=== PATIENT | male | born 1980 | race Caucasian/White ===

== ENCOUNTER 2023-07-01 14:07 | Emergency (ER) | payer MEDICAID ==
[~2023-07-01] VITALS: Ht 167.6 cm; Wt 79.5 kg
[2023-07-01] MEDS ORDERED: ACETAMINOPHEN 1000 MG/ISO-OSM 100 ML IV ONE (14:30)
[2023-07-01] MEDS ORDERED: SODIUM CHLORIDE 0.9% 2,400 ML IV ONE (14:30)
[2023-07-01] MEDS ORDERED: 0.9% SODIUM CHLORIDE 10 ML SYRINGE IVP PRN (14:30)
[2023-07-01] MEDS ORDERED: ONDANSETRON HCL 4 MG/2 ML VIAL IVP ONE (14:30)
[2023-07-01] MEDS ORDERED: KETOROLAC TROMETHAMINE 30 MG/ML VIAL IVP ONE (14:30)
[2023-07-01 15:06] LABS: BASOPHILS % (AUTO) 0.1 % (0.0-2.0); EOSINOPHILS % (AUTO) 0.1 % (1.0-6.0); HEMATOCRIT 41.4 % (41-53); HEMOGLOBIN 14.1 g/dL (13.5-17.5); LYMPHOCYTES # (AUTO) 0.6 K/uL (1.0-4.8); LYMPHOCYTES % (AUTO) 8.1 % (22.0-44.0); MEAN CORPUSCULAR HEMOGLOBIN 31.3 pg (26.0-34.0); MEAN CORPUSCULAR HGB CONC 34.1 G/dL (31.0-37.0); MEAN CORPUSCULAR VOLUME 92 fL (80-100); MONOCYTES # (AUTO) 0.5 K/uL (0.1-1.0); MONOCYTES % (AUTO) 6.5 % (2.0-9.0); NEUTROPHILS # (AUTO) 6.1 K/uL (1.8-7.7); PLATELET COUNT (AUTO) 232 K/uL (150-450); RED CELL DISTRIBUTION WIDTH 12.9 % (11.5-14.5); WHITE BLOOD COUNT (AUTO) 7.2 K/uL (4.5-11.0)
[2023-07-01 15:10] LABS: NEUTROPHILS % (AUTO) 85.2 % (40.0-70.0)
[2023-07-01 15:11] LABS: COVID AG,FIA SOURCE NASAL SWAB
[2023-07-01 15:14] LABS: ANION GAP 14 mmol/L (8-16); CALCIUM, TOTAL 8.2 mg/dL (8.8-10.5); CARBON DIOXIDE 23 mmol/L (22-29); CHLORIDE 100 mmol/L (98-107); CREATININE 0.76 mg/dL (0.60-1.30); GLOMERULAR FILTR. RATE CALC > 60 mL/min (>60); GLUCOSE,RANDOM 100 mg/dL (70-110); POTASSIUM 3.5 mmol/L (3.5-5.1); SODIUM SERUM 137 mmol/L (136-145); UREA NITROGEN, BLOOD 15 mg/dL (7-18)
[2023-07-01] MEDS ORDERED: IOHEXOL 350 MG/ML 100 ML VIAL ONE (15:20)
[2023-07-01] MEDS ORDERED: SODIUM CHLORIDE 0.9% 100 ML ONE (15:20)
[2023-07-01 15:21] LABS: TROPONIN I-HIGH SENSITIVITY 7 ng/L (<76)
[2023-07-01 15:22] LABS: LACTIC ACID 0.6 mmol/L (0.4-2.0)
[2023-07-01 15:24] LABS: B-TYPE NATRIURETIC PEPTIDE < 5 pg/mL (0-100)
[2023-07-01 15:28] LABS: INR 1.1 (0.9-1.1); PROTHROMBIN TIME 11.1 SEC (9.4-11.6)
[2023-07-01 15:39] LABS: ALANINE AMINOTRANSFERASE 30 U/L (12-78); ALBUMIN 3.6 g/dL (3.4-5.0); ALKALINE PHOSPHATASE 80 U/L (46-116); ASPARTATE AMINOTRANSFERASE 19 U/L (15-37); BILIRUBIN,TOTAL 1.2 mg/dL (0.1-1.0); CREATINE KINASE, TOTAL ONLY 78 U/L (39-308); TOTAL PROTEIN, SERUM 7.6 g/dL (6.4-8.2)
[2023-07-01 15:46] LABS: INFLUENZA TYPE A NEGATIVE FOR TYPE A (NEGATIVE); INFLUENZA TYPE B NEGATIVE FOR TYPE B (NEGATIVE); SARS-COV2 (COVID) ANTIGEN,FIA Negative (Negative)
[2023-07-01 18:01] LABS: APPEARANCE,URINE CLEAR (CLEAR); BILIRUBIN,URINE NEGATIVE (NEGATIVE); COLOR,URINE YELLOW (YELLOW); GLUCOSE, URINE (UA) NEGATIVE (NEGATIVE); KETONES,URINE NEGATIVE (NEGATIVE); LEUKOCYTE ESTERASE ,URINE NEGATIVE (NEGATIVE); NITRATE,URINE NEGATIVE (NEGATIVE); OCCULT BLOOD,URINE NEGATIVE (NEGATIVE); PROTEIN,URINE 30-70 mg/dL (NEGATIVE); SPECIFIC GRAVITIY, URINE 1.039 (1.003-1.030); UROBILINOGEN,URINE <=1.0 mg/dL (<=1.0)
[2023-07-01] MEDS ORDERED: ACET-3385 PO (22:02)
[2023-07-01 22:26] VITALS: BP 144/87; PULSE 96; RESP 16; TEMP 100.5
[2023-07-01] MEDS ORDERED: ACETAMINOPHEN 500 MG TABLET PO ONE (22:30)
== END 2023-07-01 22:36 | disposition home or self-care (01) ==
LOC: EMS 14:37
DX: R19.7 Diarrhea, unspecified (principal); R10.11 Right upper quadrant pain; R50.9 Fever, unspecified; Z20.822 Contact with and (suspected) exposure to COVID-19
CPT/HCPCS: 99291; 74177; 96365; 76705; 71045; 96375; 87426; 80053; 81003; 82550; 83605; 83880; 84484; 85025; 85610; 87040; 87804; 36415; 93005; 84145; J1885; J2405; Q9967; J7030; J7050; J0131